=== PATIENT | male | born 2000 | race Caucasian/White ===

== ENCOUNTER 2023-06-29 05:41 | Emergency (ER) | payer OTHER, SELFPAY ==
[2023-06-29 05:44] VITALS: BP 152/98; PULSE 94; RESP 16; TEMP 36.7; O2SAT 100
[2023-06-29 05:56] VITALS: BP 152/98; PULSE 86; RESP 16; TEMP 36.7
--- NOTE | 2023-06-29 06:00 | DI.CT_ITS ---
Exam(s) CT ABDOMEN PELVIS W EXAM: CT ABDOMEN PELVIS W CLINICAL HISTORY: LUQ abd pain, vomiting, s/p pancreatectomy TECHNIQUE: Imaging Protocol: Axial computed tomography images with coronal and sagittal reformatted images were created and reviewed. CONTRAST MATERIAL: Intravenous: Omnipaque 350 contrast volume:100 mL Oral: No COMPARISON: No exams were available for comparison FINDINGS: ABDOMEN: Lung Bases: Normal where visualized. Liver: Normal density. No measurable mass. Portal, Superior Mesenteric, and Splenic Veins: Unremarkable. Gallbladder and Biliary Tract: No radiodense calculus or dilation. Pancreas: Normal density, no abnormal calcifications or inflammatory process. The uncinate process an d head of the pancreas are visualized. The tail and body are not visualized. 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 Spleen: Normal. Adrenals: No masses seen. Kidneys: Normal size, contour and axis. No radiodense stones or obstructive uropathy. No masses seen. Abdominal Aorta: Abdominal portion non-dilated. Bowel: No obstruction or bowel wall thickening. No evidence of appendicitis. 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 Peritoneal Cavity: No ascites, collection or mesenteric inflammatory response. No free air. Lymph Nodes: Mildly enlarged lymph nodes are seen in the mesentery. Bones: Within normal limits for the patient's age. Soft Tissues: Unremarkable. PELVIS: Bladder: Symmetric distention, no gross wall thickening. Reproductive Organs: Unremarkable as visualized. Lymph Nodes: Within normal limits. Bones: Within normal limits for the patient's age. IMPRESSION: 1. Mildly prominent mesenteric lymph nodes. This can be seen with mesenteric adenitis or mild enteri tis. Please correlate clinically. Neoplasm cannot be entirely excluded. 2. No other acute abdominal or pelvic process is identified. RADIATION DOSE DELIVERED: 992.22mGy.cm Total DLP DATA REPOSITORY: All CT scans at this facility are submitted to the National Radiology Data Registry (NRDR) Dose Index Registry (DIR) with the [employer] ([employer]). RADIATION OPTIMIZATION: All CT scans at this facility use at least one of these dose optimization te chniques: automated exposure control; mA and/or kV adjustment per patient size (includes targeted exa ms where dose is matched to clinical indication); or iterative reconstruction.
[2023-06-29 06:08] LABS: Abs Immature Grans 0.01 10^3/uL (0.0-0.06); Absolute Basophil Count 0.02 10^3/uL (0.0-0.2); Absolute Eosinophil Count 0.12 10^3/uL (0.0-0.7); Absolute Lymphocyte Count 1.66 10^3/uL (1.2-3.4); Absolute Monocyte Count 0.51 10^3/uL (0.1-0.8); Absolute Neutrophil Count 3.11 10^3/uL (1.2-6.7); Basophils % 0.4; Eosinophils % 2.2; HCT 41.5 % (40.0-50.0); HGB 14.5 g/dL (13.5-17.5); Immature Grans % 0.2; Lactate 1.1 mmol/L (0.6-1.4); Lymphocytes % 30.6; MCH 29.9 pg (27.0-33.0); MCHC 34.9 % (32.0-36.0); MCV 86 fL (80-95); MPV 8.3 fL (8.0-11.0); Monocytes % 9.4; Neutrophils % 57.2; Platelet Count 244 10^3/uL (130-400); RBC 4.85 10^6/uL (4.36-5.78); RDW-SD 37.7 fL; WBC 5.43 10^3/uL (4.4-10.8)
[2023-06-29] MEDS: Ondansetron 4 MG/2 ML VIAL IVP (06:10)
[2023-06-29] MEDS: Normal Saline 1,000 ML 1000 ML IV (06:11)
[2023-06-29] MEDS: Omnipaque 350 MG/ML 100 ML BTL IJ (06:14)
[2023-06-29] MEDS: Normal Saline Flush 10 ML SYR IVP (06:15)
[2023-06-29] MEDS: Normal Saline - Diluent 50 ML VIAL IJ (06:15)
--- NOTE | 2023-06-29 06:23 | W.ED.GENAD ---
HPI General Mode of arrival: ambulatory. Date/Time Provider Initiated Documentation: 06/29/23 05:45. Limitations to Documentation: no limitations. Information obtained by: patient. 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 Tuesday evening felt nauseated and began vomiting, lasted for 10-12 hours and after onset of vomiting was associated wtih LUQ abdominal pain. Emesis is non-bloody, non-bilious. Associated with occasional diarrhea, loose stool once or twice a day. Since Tuesday the pain has been dull, persistent, mild, and constant. He has had intermittent vomiting, usually once or twice a day. No appetite; minimal food intake. Has been able to drink fluids and mostly keep them down. No dysuria, hematuria, penile discharge, flank pain, or lower abdominal pain. He is otherwise in his usual state of health with no fevers, chills, rash, chest pain, shortness of breath, headache, vertigo, numbness, tingling, weakness, syncope, or other concerns. Related Data Home Medications Medication Instructions Recorded Confirmed Unknown [No Known Home Meds] 11/22/13 06/29/23 Allergies Allergy/AdvReac Type Severity Reaction Status Date / Time No Known Allergies Allergy Unverified 06/29/23 05:52 General Stated Complaint: Abd Prob DANIEL: 3 Review of Systems Narrative: see HPI Exam Narrative Exam Narrative: General: Alert, well appearing, well nourished, in no acute distress. Head: Normocephalic, atraumatic Neck: Trachea midline, ?Neck supple. ENT: ?MMM.? No oropharygeal lesions or exudate. Cardiac: ?RRR, no murmurs appreciated Resp: No respiratory distress. CTAB. Abd: ?Soft, non-distended. LUQ mildly TTP with no rebound or guarding. Large horizontal scar across upper abdomen. : ?No suprapubic tenderness. No CVA tenderness. Extremities: ?No deformities.? No peripheral edema. Neurologic: GCS 15. ? Moves all extremities freely against gravity Course Vital Signs Vital signs: Vital Signs Temperature 36.7 C 06/29/23 05:44 Pulse 94 H 06/29/23 05:44 Respiratory Rate 16 06/29/23 05:44 Blood Pressure 152/98 H 06/29/23 05:44 Pulse Oximetry 100 06/29/23 05:44 Temperature 36.7 C 06/29/23 05:56 Temperature Source Temporal Artery Scan 06/29/23 05:56 Pulse 86 06/29/23 05:56 Respiratory Rate 16 06/29/23 05:56 Respiratory Effort Normal, Non-Labored 06/29/23 05:48 Blood Pressure 152/98 H 06/29/23 05:56 Pulse Oximetry 100 06/29/23 05:44 Oxygen Delivery Method Room Air 06/29/23 05:56 Oxygen Flow Rate 98 06/29/23 05:56 Pain Level 5 06/29/23 05:48 Lab/Test Results Lab/Test Results: Laboratory Tests Range/Units 06/29/23 05:54 WBC (4.4-10.8) 10^3/uL 5.43 RBC (4.36-5.78) 10^6/uL 4.85 Hgb (13.5-17.5) g/dL 14.5 Hct (40.0-50.0) % 41.5 MCV (80-95) fL 86 MCH (27.0-33.0) pg 29.9 MCHC (32.0-36.0) % 34.9 RDW (11.8-14.1) % 12.0 Plt Count (130-400) 10^3/uL 244 MPV (8.0-11.0) fL 8.3 Immature Gran % 0.2 Neutrophils % 57.2 Lymphocytes % 30.6 Monocytes % 9.4 Eosinophils % 2.2 Basophils % 0.4 Nucleated RBC % (0.0-0.3) % 0.0 Absolute Neutrophils (1.2-6.7) 10^3/uL 3.11 Absolute Lymphocytes (1.2-3.4) 10^3/uL 1.66 Absolute Monocytes (0.1-0.8) 10^3/uL 0.51 Absolute Eosinophils (0.0-0.7) 10^3/uL 0.12 Absolute Basophils (0.0-0.2) 10^3/uL 0.02 VBG Lactate (0.6-1.4) mmol/L 1.1 Medical Decision Making 22yo M with 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 Vomiting was initially frequent, over the past 2 days has been 1-2 times a day, non-bloody non-bilious. Taking good PO fluids. Pain is dull, mild, and constant. Slightly hypertensive on arrival, vital signs otherwise reassuring. Not septic. Will treat symptoms with IV zofran, give 1L IVFB; offered pain medication which patient declined. Possibly gastroenteritis however given abdominal tenderness and surgical history, warrants evaluation with CT imaging. LUQ pain less suggestive of gallbladder pathology, would not transfer for US at this time. Symptoms and exam not suggestive of intracranial pathology. Pain is upper, no lower abdominal pain or urinary symptoms to suggest UTI or kidney stone. Labs reviewed as below, CBC with no leukoctyosis or anemia, CMP with mild hypokalemia (3.4), otherwise normal. Lipase not elevated (unclear significance given surgical history). UA not infected. CT abd/pelvis ordered. Signed out to oncoming yan; plan to followup CT imaging, If CT reassuring, would PO challenge and discharge home with anti-emetics. Lab Data Lab results reviewed: Yes I reviewed the patient's lab results. Labs: Laboratory Tests Range/Units 06/29/23 06/29/23 05:54 06:56 WBC (4.4-10.8) 10^3/uL 5.43 RBC (4.36-5.78) 10^6/uL 4.85 Hgb (13.5-17.5) g/dL 14.5 Hct (40.0-50.0) % 41.5 MCV (80-95) fL 86 MCH (27.0-33.0) pg 29.9 MCHC (32.0-36.0) % 34.9 RDW (11.8-14.1) % 12.0 Plt Count (130-400) 10^3/uL 244 MPV (8.0-11.0) fL 8.3 Immature Gran % 0.2 Neutrophils % 57.2 Lymphocytes % 30.6 Monocytes % 9.4 Eosinophils % 2.2 Basophils % 0.4 Nucleated RBC % (0.0-0.3) % 0.0 Absolute Neutrophils (1.2-6.7) 10^3/uL 3.11 Absolute Lymphocytes (1.2-3.4) 10^3/uL 1.66 Absolute Monocytes (0.1-0.8) 10^3/uL 0.51 Absolute Eosinophils (0.0-0.7) 10^3/uL 0.12 Absolute Basophils (0.0-0.2) 10^3/uL 0.02 VBG Lactate (0.6-1.4) mmol/L 1.1 Sodium (136-145) mmol/L 138 Potassium (3.5-5.1) mmol/L 3.4 L Chloride (98-107) mmol/L 101 Carbon Dioxide (21.0-32.0) mmol/L 29.4 Anion Gap (3-11) mmol/L 7.6 BUN (7-18) mg/dL 10 Creatinine (0.70-1.30) mg/dL 1.0 Est GFR (CKD-EPI 2020) (mL/min/1.73m2) 108.46 Glucose (74-106) mg/dL 136 H Calcium (8.5-10.1) mg/dL 9.2 Magnesium (1.8-2.4) mg/dL 1.8 Total Bilirubin (0.2-1.0) mg/dL 0.7 AST (15-37) U/L 19 ALT (16-63) U/L 36 Alkaline Phosphatase (46-116) U/L 60 Total Protein (6.4-8.2) g/dL 7.4 Albumin (3.4-5.0) g/dL 3.7 Lipase (16-77) U/L 11 L Urine Color (Yellow) Yellow Urine Clarity (Clear) Clear Urine pH (5-8) 6.5 Ur Specific Rochelle (1.005-1.025) 1.010 Urine Protein (Negative) mg/dL Negative Urine Ketones (Negative) mg/dL Negative Urine Blood (Negative) Negative Urine Nitrite (Negative) Negative Urine Bilirubin (Negative) Negative Urine Urobilinogen (Up to 0.2) mg/dL 0.2 Ur Leukocyte Esterase (Negative) Negative Urine Glucose (Negative) mg/dL Negative Quality:SDOH Health Related Social Needs: No Data to Display PFSH Social History Smoking/Tobacco Use Status: Never Smoking risk assessment performed?: Yes Drug use: Never Substance use type: does not use Housing: house Sign Out Sign Out Data: Sign Out Comment: 22yo M, hx sub-total pancreatectomy as an infant, presents with 4-5 days of vomiting and LUQ abdominal pain. Labs reassuring, pending UA and CT. If unremarkable would PO challenge and dc home. Last updated by Tere Diaz MD at 06/29/23 06:46 Discharge Plan Discharge Details Chief Complaint: Abd Prob ED Provider: Tere Diaz Home Meds and New Rx's Prescriptions: No Action No Known Home Meds
[2023-06-29 06:32] LABS: ALT 36 U/L (16-63); AST 19 U/L (15-37); Albumin 3.7 g/dL (3.4-5.0); Alkaline Phosphatase 60 U/L (46-116); Anion Gap 7.6 mmol/L (3-11); BUN 10 mg/dL (7-18); Bilirubin, Total 0.7 mg/dL (0.2-1.0); CO2 29.4 mmol/L (21.0-32.0); Calcium 9.2 mg/dL (8.5-10.1); Chloride 101 mmol/L (98-107); Estimated GFR 108.46 (mL/min/1.73m2); Glucose 136 mg/dL (74-106); Lipase 11 U/L (16-77); Magnesium 1.8 mg/dL (1.8-2.4); Potassium 3.4 mmol/L (3.5-5.1); Sodium 138 mmol/L (136-145); Total Protein 7.4 g/dL (6.4-8.2)
[2023-06-29 07:16] LABS: Bilirubin Negative (Negative); Blood Negative (Negative); Clarity Clear (Clear); Glucose Negative (Negative); Ketones Negative (Negative); Leukocyte Esterase Negative (Negative); Nitrite Negative (Negative); Urobilinogen 0.2 mg/dL (Up to 0.2); pH 6.5 (5-8)
--- NOTE | 2023-06-29 07:25 | DI.VRAD_ITS ---
PROCEDURE INFORMATION: Exam: CT Abdomen And Pelvis With Contrast Exam date and time: 06/29/2023 6:49 AM Age: 22 years old Clinical indication: Abdominal pain; Localized; Left upper quadrant (luq); Prior surgery; Surgery date: 6+ months; Surgery type: Luq abd pain, vomiting, S/P pancreatectomy TECHNIQUE: Imaging protocol: Computed tomography of the abdomen and pelvis with contrast. Radiation optimization: All CT scans at this facility use at least one of these dose optimization techniques: automated exposure control; mA and/or kV adjustment per patient size (includes targeted exams where dose is matched to clinical indication); or iterative reconstruction. Contrast material: OMNIPAQUE 350; Contrast volume: 100 ml; Contrast route: INTRAVENOUS (IV); COMPARISON: No relevant prior studies available. FINDINGS: Liver: No focal hepatic lesion identified. Gallbladder and bile ducts: No radiodense gallbladder calculi seen. Pancreas: Partially atrophic pancreas. Spleen: Mild splenomegaly. Adrenal glands: No mass. Kidneys and ureters: No hydronephrosis or evidence for pyelonephritis. 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 The small bowel is located predominantly in the right hemiabdomen with the colon located predominantly on the left. No intestinal obstruction is evident. Areas of apparent mural thickening in the colon, including in the splenic flexure, commensurate with underdistention. Appendix: No evidence of appendicitis. Intraperitoneal space: No free air. Vasculature: No abdominal aortic aneurysm. Lymph nodes: Multiple prominent mesenteric lymph nodes. Urinary bladder: Distended urinary bladder. Reproductive: Mildly enlarged prostate. Small hydroceles. Bones/joints: No pertinent acute abnormality seen. Soft tissues: No pertinent acute abnormality seen. IMPRESSION: 1. Multiple prominent mesenteric lymph nodes, nonspecific. Consider mesenteric adenitis. Neoplastic etiologies cannot be definitively excluded. Follow-up if clinically warranted. 2. Areas of apparent thickening in the colon, including in the splenic flexure, likely secondary to incomplete distension. Colitis difficult to exclude but considered less likely. 3. Additional findings as above. Dictated and Authenticated by: Alisha Jean MD. Ordering:RON Carranza MD
--- NOTE | 2023-06-29 08:27 | ED.PROG_ITS ---
Date of service: 06/29/23 Time of Service: 08:27 Medical Decision Making Patient was signed out pending p.o. trial. Patient tolerated p.o. trial well. No vomiting. No abdominal pain or signs of an acute surgical abdomen. Patient's workup stable otherwise. Patient stable for discharge. I have extensively reviewed the treatment plan and discharge instructions with the patient. I have addressed all patient concerns at this time. The patient was made aware of what symptoms to monitor for that would warrant a return to the emergency department. Discussed the plan with the patient, they demonstrate verbal understanding and agreement with our assessment and plan at this time. The documentation in this chart was dictated using [employer] dictation software. Please excuse any dictation errors. Quality:SDOH Health Related Social Needs: No Data to Display Sign Out Sign Out Data: Sign Out Comment: 22yo M, hx sub-total pancreatectomy as an infant, presents with 4-5 days of vomiting and LUQ abdominal pain. Labs reassuring, pending UA and CT. If unremarkable would PO challenge and dc home. Last updated by Tere Diaz MD at 06/29/23 06:46 Discharge Plan Disposition Patient Disposition: Home Condition: Good Discharge Details Clinical Impression: Acute mesenteric adenitis, Vomiting Primary Care Provider: Unknown,Unknown ED Provider: Atif Kuo Home Meds and New Rx's Prescriptions: New ondansetron 4 mg tablet,disintegrating 4 mg PO Q8H PRNQty: 14 0RF Discharge Instructions Instructions: Mesenteric Adenitis (ED) Additional Instructions: Tylenol & ibuprofen over the counter as needed for pain; follow the directions on the bottle. You can take zofran up to every 8 hours as needed for nausea. Call your primary care doctor today to schedule an appointment within 5 days to follow up on your visit here. Return to the emergency department for new or worsening symptoms, including new/different/worse pain, inability to keep down fluids, fever, or if you have any other concerns.
[2023-06-29 08:35] VITALS: BP 136/86; PULSE 84; RESP 16; O2SAT 99
== END 2023-06-29 08:38 | disposition home or self-care (01) ==
LOC: ER 08:53
PROVIDERS: Student in an Organized Health Care Education/Training Program; Emergency Provider Student in an Organized Health Care Education/Training Program
DX: I88.0 Nonspecific mesenteric lymphadenitis (principal); R11.10 Vomiting, unspecified
CPT/HCPCS: 00123; 80053; 83690; 96361; 96374; 99285; 74177; 81003; 83605; 83735; 85025; 99284; J2405; J3490

== ENCOUNTER 2024-03-06 12:54 | Outpatient (REF) | payer OTHER, SELFPAY ==
[2024-03-06 15:22] LABS: TSH (W/Ref FT4) 0.95 uIU/mL (0.36-3.74)
== END 2024-03-06 12:55 | disposition home or self-care (01) ==
LOC: NCHCN 12:54
PROVIDERS: Visit Provider Nurse Practitioner Family
DX: F32.A Depression, unspecified (principal)
CPT/HCPCS: 84443

== ENCOUNTER 2024-04-23 09:25 | Outpatient (REF) | payer OTHER, SELFPAY ==
[2024-04-23 15:58] LABS: Abs Immature Grans 0.02 10^3/uL (0.0-0.06); Absolute Basophil Count 0.05 10^3/uL (0.0-0.2); Absolute Eosinophil Count 0.09 10^3/uL (0.0-0.7); Absolute Lymphocyte Count 1.71 10^3/uL (1.2-3.4); Absolute Monocyte Count 0.56 10^3/uL (0.1-0.8); Absolute Neutrophil Count 4.57 10^3/uL (1.2-6.7); Basophils % 0.7 %; Eosinophils % 1.3 %; HCT 43.5 % (40.0-50.0); HGB 14.4 g/dL (13.5-17.5); Immature Grans % 0.3 %; Lymphocytes % 24.4 %; MCH 30.1 pg (27.0-33.0); MCHC 33.1 % (32.0-36.0); MCV 91 fL (80-95); Neutrophils % 65.3 %; Platelet Count 275 10^3/uL (130-400); RBC 4.79 10^6/uL (4.36-5.78); RDW 11.9 % (11.8-14.1); RDW-SD 39.8 fL
[2024-04-23 16:49] LABS: Ferritin 113 ng/mL (26-388)
[2024-04-23 17:03] LABS: Iron 72 ug/dL (65-175); Total Iron Binding Capacity 266 ug/dL (250-450); Transferrin Sat 27 % (20-55)
[2024-04-24 09:08] LABS: Lyme Ab w Rflx to Lyme Confirm Negative (Negative)
[2024-04-26 16:14] LABS: Anaplasma phagocytophilum Negative (Negative); B. miyamotoi PCR Negative (Negative); Babesia divergens/MO-1 Negative (Negative); Babesia duncani Negative (Negative); Babesia microti Negative (Negative); Ehrlichia chaffeensis Negative (Negative); Ehrlichia ewingii/canis Negative (Negative); Ehrlichia muris eauclairensis Negative (Negative)
== END 2024-04-23 09:26 | disposition home or self-care (01) ==
LOC: NCHCN 09:25
PROVIDERS: PCP Nurse Practitioner Family; Visit Provider Nurse Practitioner Family
DX: R53.83 Other fatigue (principal)
CPT/HCPCS: 87798; 82728; 83540; 83550; 85025; 86618

== ENCOUNTER 2025-02-07 14:49 | Outpatient (REF) | payer OTHER, SELFPAY ==
[2025-02-07 20:58] LABS: Abs Immature Grans 0.02 10^3/uL (0.0-0.06); HCT 43.9 % (40.0-50.0); HGB 15.1 g/dL (13.5-17.5); Immature Grans % 0.2 %; MCH 29.9 pg (27.0-33.0); MCHC 34.4 % (32.0-36.0); MCV 87 fL (80-95); MPV 9.1 fL (8.0-11.0); Platelet Count 283 10^3/uL (130-400); RBC 5.05 10^6/uL (4.36-5.78); RDW 12.0 % (11.8-14.1); RDW-SD 38.2 fL; WBC 8.78 10^3/uL (4.4-10.8)
== END 2025-02-07 14:50 | disposition home or self-care (01) ==
LOC: NCHCN 14:49
PROVIDERS: PCP Nurse Practitioner Family; Visit Provider Nurse Practitioner Family
DX: R10.9 Unspecified abdominal pain (principal)
CPT/HCPCS: 80053; 83690; 82150; 85025

== ENCOUNTER 2025-02-11 14:41 | Outpatient (REF) | payer OTHER, SELFPAY ==
[2025-02-11 15:05] LABS: ALT 22 U/L (16-63); AST 13 U/L (15-37); Albumin 4.1 g/dL (3.4-5.0); Alkaline Phosphatase 89 U/L (46-116); Amylase 58 U/L (25-115); Anion Gap 7.1 mmol/L (3-11); BUN 16 mg/dL (7-18); Bilirubin, Total 0.5 mg/dL (0.2-1.0); CO2 31.9 mmol/L (21.0-32.0); Calcium 9.3 mg/dL (8.5-10.1); Chloride 101 mmol/L (98-107); Estimated GFR 95.54 (mL/min/1.73m2); Glucose 136 mg/dL (74-106); Lipase 58 U/L (<78); Potassium 4.9 mmol/L (3.5-5.1); Sodium 140 mmol/L (136-145); Total Protein 7.4 g/dL (6.4-8.2)
== END 2025-02-11 14:42 | disposition home or self-care (01) ==
LOC: NCHCN 14:41
PROVIDERS: PCP Nurse Practitioner Family; Visit Provider Nurse Practitioner Family
DX: R10.9 Unspecified abdominal pain (principal)
CPT/HCPCS: 80053; 83690; 82150